=== PATIENT | female | born 1975 | race Caucasian/White ===

== ENCOUNTER 2022-04-04 07:42 | Outpatient (CLI) | payer OTHER, SELFPAY | END 2022-04-04 07:43 | disposition home or self-care (01) | LOC: NFLDREF 07:43 | PROVIDERS: PCP Physician Assistant Medical; Visit Provider Family Medicine | DX: N39.0 Urinary tract infection, site not specified (principal); R30.0 Dysuria; F41.8 Other specified anxiety disorders | CPT/HCPCS: 87086 ==

== ENCOUNTER 2022-04-06 11:08 | Outpatient (CLI) | payer OTHER, SELFPAY | END 2022-04-06 11:09 | disposition home or self-care (01) | LOC: LAB 11:11 | PROVIDERS: PCP Physician Assistant Medical; Visit Provider Obstetrics & Gynecology | DX: R63.5 Abnormal weight gain (principal); R10.2 Pelvic and perineal pain; R53.83 Other fatigue | CPT/HCPCS: 36415; 84443 ==

== ENCOUNTER 2022-04-27 08:37 | Day surgery (SDC) | payer OTHER, SELFPAY ==
[2022-04-27] VITALS (16 sets, daily range): BP systolic 94–137; BP diastolic 54–95; PULSE 56–91; RESP 12–18; TEMP 36.6–36.9; O2SAT 97–100; BMI 29.6
[2022-04-27 09:00] LABS: Hemoglobin* 14.5 gm/dL (12.0-16.0)
[2022-04-27] MEDS: LACTATED RINGERS 1000 ML 1,000 ML 100 ML IV (09:05)
[2022-04-27] MEDS: SODIUM CHLORIDE 0.9 % (FLUSH) 10 ML SYRINGE IVF (09:05)
[2022-04-27 09:28] LABS: Creatinine* 0.8 mg/dL (0.5-1.5); Est. Creatinine Clearance* 84.54; Estimated Glomerular Filt Rate 91 ml/min
[2022-04-27] MEDS: SCOPOLAMINE 1 MG/3 DAY PATCH 1 PATCH TRANSDERMA (10:22)
[2022-04-27] MEDS: BUPIVACAINE 0.25% 30 ML INJECTION (11:15)
--- NOTE | 2022-04-27 11:44 | W.PM.NB ---
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 Images saved: Yes Medications given in 5ml increments after negative aspiration: Marcaine %: 0.5 mL: 15 Needle gauge: 20 and Exparel mL: 10 Patient tolerated procedure well: Yes Additional comments: Needle noted adjacent to nerve Block Charges Block Charge (with Pro Fee): TAP Bilateral Use of Ultrasound Machine for Block: Yes- US Guidance/pain block
--- NOTE | 2022-04-27 13:42 | W.ANESCHARGE ---
Anesthesia Charges Start Date/Time Anesthesia Start Date: 04/27/22 Anesthesia Start Time: 10:30 Stop Date/Time Anesthesia Stop Date: 04/27/22 Anesthesia Stop Time: 14:28 Summary Emergency: No
--- NOTE | 2022-04-27 14:44 | CRLHL7_ITS ---
For Patients: As a result of the Century Cures Act, medical imaging exams and procedure reports are released immediately into your electronic medical record. You may view this report before your referring provider. If you have questions, please contact your health care provider. INDICATION: Postop foreign body TECHNIQUE: Abdomen 2 view. COMPARISON: None FINDINGS: Bowel: Bowel pattern is normal. Soft tissues: No sign of free air. No sign of soft tissue mass. No suspicious calcifications. Bones: Unremarkable for age. IMPRESSION: No radiopaque foreign bodies identified. Dictated by Avni Leong MD @ 04/27/2022 3:45:20 PM (Electronically Signed)
--- NOTE | 2022-04-27 15:01 | W.ANESCHARGE ---
Anesthesia Charges Start Date/Time Anesthesia Start Date: 04/27/22 Anesthesia Start Time: 10:30 Stop Date/Time Anesthesia Stop Date: 04/27/22 Summary Emergency: No
--- NOTE | 2022-04-27 15:08 | W.PM.GYNPROC ---
Procedure Note Date Seen: 04/27/22 Procedure Details: PREOPERATIVE DIAGNOSIS: Pelvic pain Cystocele Stress incontinence POSTOPERATIVE DIAGNOSIS: Pelvic pain No pelvic organ prolapse Urethral stenosis TITLE OF OPERATION: Total laparoscopic hysterectomy with bilateral salpingectomy SURGEON: Sherice Stone MD PIERCING MACHINE OPERATOR: IMAN Rios ANESTHESIA: General IV FLUIDS: 2100 mL crystalloid ESTIMATED BLOOD LOSS: 100 mL FINDINGS: 1. Pelvic exam under anesthesia revealed a normal appearance to the vagina. The anterior vaginal wall was well rugated. It was of unusual contour, but there was actually no cystocele. The vaginal apex was generally well-supported, with at least level 1 support. Cervix was normal appearance. Uterus was mobile, of normal texture and contour. There were no palpable adnexal masses. 2. Upon laparoscopy, survey of the upper abdomen revealed a normal appearance to the inferior edge of the liver, gallbladder and stomach. Bowels were grossly normal appearance, as was the appendix. Survey of the pelvis revealed normal appearance to the uterus. Bilateral tubes and ovaries were normal in appearance. The cul-de-sac was scarred along the right uterosacral ligament, with the uterosacral ligament itself broadened and attached in a scarred band to the middle aspect of the cul-de-sac. It exhibited one powder burn lesion near its midportion, proximally 2 mm in greatest dimension. The bladder reflection was normal in appearance. COMPLICATIONS: None PROCEDURE IN DETAIL: Patient was taken to the operating room with IV running. She received cefazolin in preoperative prophylaxis. She was positioned in dorsal lithotomy position with her legs fully supported in Yellofin stirrups. General anesthesia was administered. She was prepped and draped in the usual sterile fashion. Pelvic exam under anesthesia was performed for the above-noted findings. Speculum was inserted. Cervix visualized and grasped along its anterior lip with a single-tooth tenaculum. Cervix was dilated with Hegar dilators to accommodate the VCare uterine manipulator. A medium-sized colpotomizer cup was selected. The tip of the uterine manipulator was inserted through the cervix into the uterine cavity and the balloon was inflated. The speculum was removed. The colpotomy cup was advanced, surrounding the cervix, and the proximal occluder was moved up along the shaft of the VCare and fixed in place. Arellano catheter was placed. However, it was immediately noted that the patient's urethra would not accomodate a 16 [place] catheter, so a smaller size was placed. Patient's legs were then placed in neutral position. Attention was turned to patient's abdomen. Infraumbilical area was infiltrated with a small amount of Marcaine. A 5 mm infraumbilical incision was made with a scalpel and carried down to the underlying layer of fascia with the hemostat. 5 mm camera was placed within the 5 mm Fios Kii trocar, and advanced under direct visualization through the anterior abdominal wall into the peritoneal cavity, while tenting up the anterior abdominal wall. The trocar was removed. The balloon was inflated, holding the port in place. Pneumoperitoneum was achieved. Survey of the abdomen and pelvis revealed the above-noted findings. Three additional port sites were created. The first was in the patient's left lower quadrant, just superomedial to the left ASIS. The second was a hand's breadth superior to and slightly medial to the first. The third was in the patient's right lower quadrant, just superomedial to the right ASIS. An 11 mm incision was made in the left lower quadrant, and a 5 mm incision was made at the other 2 sites, after assuring that large vessels were out of harm's way. A 10 mm Fios Kii port was inserted at the left lower quadrant site, and a 5 mm Fios Kii port at each of the other 2 sites, under direct visualization and without complication. The balloon on each of the four ports was inflated, holding each in place. Attention was first turned to the right fallopian tube, which was divided from the mesosalpinx, using the Thunderbeat bipolar cautery device, proceeding laterally to medially, and the tube was amputated at the right uterine cornua. This was removed through the port site and sent to pathology. This procedure was repeated on the patient's left side, and the left fallopian tube was also amputated at the cornua and removed from the patient's abdomen. This was also sent to pathology for further analysis. The left round ligament was cauterized and transected with the Thunderbeat device. The utero-ovarian ligament was cauterized and transected, and the remnants of the right broad ligament were cauterized and transected between these two structures. The bladder flap was created on the patient's left side, moving laterally to medially. The left uterine artery was cauterized and transected with the Thunderbeat device. Using the colpotomizer cup as a guide, the peritoneum and underlying stroma was dissected off the anticipated site of colpotomy over the posterior vaginal fornix. Attention was then turned to the right side of the uterus, where the right round ligament was cauterized and transected with the Thunderbeat device. The right utero-ovarian ligament was cauterized and transected, and the remnants of the right round ligament were cauterized and transected between these two structures. The bladder flap was created on the patient's right side, and dissection was carried laterally to medially, meeting the dissection where it had left off from the patient's right side. The right uterine artery was cauterized and transected with the Thunderbeat device. The bladder reflection was moved well below the colpotomizer cup anteriorly. The vaginal fornix was then entered anteriorly with the Thunderbeat device, using the colpotomizer cup as a guide. This device was moved along the circumference of the colpotomizer cup, until the uterus and cervix were freed from their attachments to the pelvis. The uterus was pulled into the patient's vagina, maintaining the pneumoperitoneum. Two 0 Vicryl sutures were then placed laparoscopically with the intention of using them in a modified Oglesby's culdoplasty. The 1st was placed laterally through the right side of the vagina, then through the proximal right uterosacral ligament, across the peritoneum of the posterior cul-de-sac, through the proximal left uterosacral ligament, and back through the left vaginal cuff at the angle. The ends of the suture were pulled through 1 of the abdominal ports with a hemostat attached. A 2nd modified Oglesby stitch was placed just medially to the first within the posterior vaginal wall, and just cephalad to the first along the posterior cul-de-sac. This second stitch was also held in one of the ports for later use. Ports were left in place but all instruments were removed and pneumoperitoneum was released. Patient's legs were placed back in lithotomy position. The uterus was removed from the vagina and was sent to pathology for further analysis. Speculum was inserted. The anterior and posterior vaginal cuffs were grasped with Allis clamps. With great difficulty, the modified Oglesby sutures were pulled through the top of the vaginal cuff and again held with hemostats for later use. Patient was given IV sodium fluorescein in preparation for cystoscopy. However, when cystoscopy was attempted, the cystoscope was far too large for the patient's urethra to accommodate. Attempt was made to use both a rigid and flexible ureteral scope, but neither of these was able to provide adequate visualization of ureteral orifices, much less the rest of the bladder. Given this, and the fact that she truly did not seem to have vaginal wall prolapse, decision was made to remove the modified Oglesby stitches entirely. The vaginal cuff was then closed vaginally with a series of sutures of 0 Vicryl. Hemostasis was noted. While the initial plan had been to perform a retropubic mid urethral sling, I was then able to do this safely given my lack of cystoscope that would suit the patient's stenotic urethra. Therefore, I decided not to place a mid urethral sling. Patient's legs were again placed in neutral position. Insufflator was reattached to the port and pneumoperitoneum again achieved. Survey of the pelvis revealed some bleeding along the pedicle of the left ovarian ligament, which was addressed with the Thunderbeat device. There was a small amount of bleeding along the right cuff angle as well, also addressed with Thunderbeat. The above described powder burn lesion along the midportion of the right uterosacral ligament was excised sharply with laparoscopic abigail and sent to pathology for further analysis. Hemostasis of the biopsy site was achieved with monopolar cautery. The 11 mm Fios Kii port in the left lower quadrant was removed after balloon on the port was deflated. The Bishop-Adis laparoscopic closure device was inserted through this port. With the help of this device, the fascia was closed with a single suture of 0-Vicryl. Procedure was deemed complete. The balloons of all remaining port sites were deflated, and all ports were removed after pneumoperitoneum was released. The skin of each port site was closed in a subcuticular fashion with 4 0 Monocryl. Surgical glue was applied above this. Patient tolerated procedure well and was taken to recovery area in stable condition.
--- NOTE | 2022-04-27 15:58 | SUR.PHASEI ---
THIS BUSINESS EDUCATION PROFESSOR GAVE 300 ML OF LACTATED RINGERS PER THE PATIENT'S IV WHILE THE PATIENT WAS IN PACU. THIS BUSINESS EDUCATION PROFESSOR ALSO EMPTIED 400 ML OF URINE PER THE PATIENT'S ALLEN CATHETER DRAIN BAG.
[2022-04-27] MEDS: MORPHINE 2 MG/ML inj IVP (16:09)
[2022-04-27] MEDS: LACTATED RINGERS 1000 ML 1,000 ML 125 ML IV (20:03)
[2022-04-27] MEDS: KETOROLAC 30 MG/ML inj IVP (20:54)
[2022-04-28 00:16] VITALS: BP 107/67; PULSE 69; RESP 16; TEMP 37.3; O2SAT 98
[2022-04-28] MEDS: KETOROLAC 30 MG/ML inj IVP ×2 (03:36→11:24)
[2022-04-28 03:37] VITALS: BP 105/68; PULSE 77; RESP 16; TEMP 36.7; O2SAT 98
--- NOTE | 2022-04-28 06:43 | W.ANESCHARGE ---
Anesthesia Charges Start Date/Time Anesthesia Start Date: 04/27/22 Anesthesia Start Time: 10:30 Stop Date/Time Anesthesia Stop Date: 04/27/22 Anesthesia Stop Time: 14:28 Summary Emergency: No
[2022-04-28 07:30] LABS: Hemoglobin* 12.4 gm/dL (12.0-16.0)
[2022-04-28 07:43] LABS: Creatinine* 0.8 mg/dL (0.5-1.5); Est. Creatinine Clearance* 84.54; Estimated Glomerular Filt Rate 91 ml/min
[2022-04-28 08:00] VITALS: BP 112/68; PULSE 69; RESP 16; TEMP 37; O2SAT 98
--- NOTE | 2022-04-28 11:02 | PM.GYNDS1 ---
DS: Providers Provider Date Seen: 04/28/22 Date of admission: 08/06/2022 Primary care physician: Chetna Davis PA-C Admitting Clinician: Dr. Sherice Stone Attending Physician on discharge: Sherice Stone MD Date of Discharge: 04/28/22 DS: Diagnosis Discharge Diagnosis (1) S/P laparoscopic hysterectomy: Status: Acute Problem details: Total laparoscopic hysterectomy with bilateral salpingectomy 04/27/22 (2) Chronic urethral stricture: Status: Acute CERAMICS INSTRUCTOR-Discharge Summary Hospital Course Hospital Course Narrative: Patient is a 46 year old woman admitted on 04/27/22 for total lapararoscopic hysterectomy. Indication for surgery: Pelvic pain, cystocele, stress incontinence. Intraoperative findings were notable for normal appearance of uterus, tubes and ovaries. There was a single powder-burn lesion on the right uterosacral ligament which was excised. She was not found to have any prolapse on exam intraoperatively; she did have irregular contour of anterior vaginal wall but this was well rugated. She had urethral stricture that prevented use of cystoscope, and so I was not able to perform midurethral sling as planned. She had an uncomplicated surgery. Postoperative course has been uneventful. Vitals have been stable. She has remained afebrile. Today, on postoperative day 1, she reports the pain is well controlled. She has been able to ambulate a little. She is tolerating regular diet without nausea. She has not yet passed flatus. Arellano catheter has been removed, and she passed voiding trial. Time Spent with Patient Time attestation: Total time spent providing and/or coordinating discharge services: CERAMICS INSTRUCTOR - Exam Physical Exam: Vital signs: Temp Pulse Resp BP Pulse Ox O2 Del Method 98.1 F 77 16 105/68 98 04/28/22 03:37 04/28/22 03:37 04/28/22 03:37 04/28/22 03:37 04/28/22 03:37 04/28/22 03:37 Narrative: General: Pleasant, no acute distress Heart: Regular rate and rhythm, no murmur or gallop Lungs: Clear to auscultation bilaterally Abdomen: Laparoscopic port sites clean, dry, and intact. Normoactive bowel sounds. Soft, nontender, slightly distended, no rebound or guarding Lower extremities: No edema or erythema CERAMICS INSTRUCTOR - DS: Data Data Completed and Pending Labs on day of discharge: Labs from last 24 hours 04/28/22 04/28/22 04/27/22 07:12 07:12 14:59 Hgb 12.4 Creatinine 0.8 Estimated Creat Clear 84.54 Estimated GFR 91 Surg PTH (Off-Site) Pending Procedures Procedures: Procedures Operation Date: 04/27/22 10:20 Actual Procedure Side Surgeon p Total Laparoscopic Hysterectomy, Bilateral Salpingectomy, peritoneal biopsy Sherice Stone MD Complications: none Discharge Plan Discharge Disposition: Home, Self-Care Discharging Surgeon: Sherice Stone Follow-Up Appointment: 2 and 6 weeks Prescriptions: New ibuprofen 600 mg tablet 600 mg PO Q6H PRNQty: 60 0RF hydrocodone-acetaminophen 5-300 mg tablet 1 tab PO Q4H PRN (Reason: pain) Qty: 20 0RF Continued multivitamin with iron [Daily Multiple Vitamins/Iron] Tablet 1 tab PO QDAY Activity Detail: no heavy lifting for 3 weeks. Nothing per vagina 6 weeks[address] No [address] while using narcotic pain medications. Discharge Diet: Regular Patient Instructions: Surgical Site Infections (DC), Laparoscopic Hysterectomy (GEN) Forms: Work/Release Restrictions Follow-up: Sherice Stone MD [Staff Physician] - Chetna Davis PA-C [Primary Care Provider] - Discharge Orders: Discharge Order (Routine); Ordered 04/28/22 Ordered By: Sherice Stone
[2022-04-28 11:29] VITALS: BP 110/73; PULSE 77; RESP 16; TEMP 37.1; O2SAT 98
[2022-04-28] MEDS: SIMETHICONE 80 MG TAB.CHEW 160 MG PO (11:35)
[2022-04-28 13:29] VITALS: BP 119/68; PULSE 60; RESP 16; TEMP 37.1
== END 2022-04-28 13:45 | disposition home or self-care (01) ==
LOC: OR 08:38 → OB 15:37
PROVIDERS: PCP Physician Assistant Medical; Visit Provider Obstetrics & Gynecology
PROC: 0UT94ZZ Resection of Uterus, Percutaneous Endoscopic Approach (ICD-10-PCS; CPT 58571; principal; 2022-04-27 10:00)
DX: R10.2 Pelvic and perineal pain (principal); N39.3 Stress incontinence (female) (male); N35.82 Other urethral stricture, female; N80.3 Endometriosis of pelvic peritoneum; D25.9 Leiomyoma of uterus, unspecified; N83.8 Other noninflammatory disorders of ovary, fallopian tube and broad ligament
CPT/HCPCS: 58571; 58662; 36415; 64488; 74018; 76942; 82565; 840; 85018; 86850; 86900; 86901; 88305; 88307; A4344; A9270; C9290; J0330; J1100; J1885; J2270; J2405; J2704; J3010; J3490; J7120